=== PATIENT | female | born 1995 | race Caucasian/White ===

== ENCOUNTER 2019-05-30 17:28 | Emergency (ER) | payer OTHER ==
[~2019-05-30] VITALS: Ht 157.5 cm; Wt 75.0 kg
[2019-05-30 19:45] VITALS: BP 97/56
[2019-05-30] MEDS ORDERED: SULF1TAB24 PO (20:13)
[2019-05-30] MEDS ORDERED: ERYT1OIN6 OP (20:13)
--- NOTE | 2019-05-30 20:14 | PHYS DOC ---
Adult General Chief Complaint Chief Complaint: EYE PROBLEMS HPI HPI Patient is a 23 year old female who presents to the ED today complaining of her stay on the left upper eyelid that began 3 days ago, denies any fever or vision issues. She is also complaining of an area of redness/cellulitis on the left lower lip that she believes began around the same time. Denies any fever but states the infection has gone in her blood stream and wants to be worked up. (ANTONIO THURSTON APRN) Review of Systems Review of Systems Constitutional: Denies fever or chills [] Eyes: Reports stye to the left upper eyelid. Denies change in visual acuity, or eye pain [] HENT: Reports redness to the left lower lip. Denies nasal congestion or sore throat [] Musculoskeletal: Denies back pain or joint pain [] Integument: Denies rash or skin lesions [] Neurologic: Denies headache, focal weakness or sensory changes [] All other systems were reviewed and found to be within normal limits, except as documented in this note. (ANTONIO THURSTON APRN) Allergies Allergies Allergies Coded Allergies Type Severity Reaction Last Updated Verified No Known Drug Allergies 05/30/19 No (WILLIE THOMPSON MD) Physical Exam Physical Exam Constitutional: Well developed, well nourished, no acute distress, non-toxic appearance. [] Eyes: PERRLA, EOMI, conjunctiva normal, no discharge. Left upper eyelid with a tiny external stye with slight erythema to the eyelid. Skin: Warm, dry, left lower lip with a tiny area of cellulitis Back: No tenderness, no CVA tenderness. [] Extremities: No tenderness, no cyanosis, no clubbing, ROM intact, no edema. [] Neurologic: Alert and oriented X 3, normal motor function, normal sensory function, no focal deficits noted. [] Psychologic: Affect normal, judgement normal, mood normal. [] (ANTONIO THURSTON APRN) Current Patient Data Vital Signs Vital Signs Date Time Temp Pulse Resp B/P (MAP) Pulse Ox O2 Delivery O2 Flow Rate FiO2 05/30/19 19:45 98.4 87 18 97/56 (70) 98 Room Air 98.4 (WILLIE THOMPSON MD) EKG EKG [] (ANTONIO THURSTON APRN) Radiology/Procedures Radiology/Procedures [] (ANTONIO THURSTON APRN) Course & Med Decision Making Course & Med Decision Making Pertinent Labs and Imaging studies reviewed. (See chart for details) This is a 23-year-old female patient presenting to the ED today with a stye to the left upper eyelid, discharged on erythromycin. Also has cellulitis to the lower lip. Discharged on Bactrim. Tetanus up-to-date. Patient tried stating the infection has gone top her blood stream and she needs to be worked up. She has no fever and her HR is normal neither does she meet sepsis criteria. Discharged to home. (ANTONIO THURSTON APRN) Dragon Disclaimer Dragon Disclaimer This electronic medical record was generated, in whole or in part, using a voice recognition dictation system. (ANTONIO THURSTON APRN) Departure Departure Impression: Primary Impression: Cellulitis of skin of lip Additional Impression: Sty, external Disposition: HOME, SELF-CARE Condition: STABLE Referrals: LAURA MENDIETA MD (PCP) follow up in 1 week Patient Instructions: Cellulitis, [id number], Sty Additional Instructions: You were seen for a stye on the left upper eyelid and cellulitis to lip. Use the prescribed medications as ordered. Ensure you complete your oral antibiotics. Apply warm compresses to the left upper eyelid twice a day. Follow- up with your doctor in 1-2 weeks. Scripts Erythromycin Base (Erythromycin) 1 Gm Oint...g. 1 GM OP Q4HRS W/A, #1 MISC Apply 1/2 inch to the left eye every 4 hours while awake for 7 days Prov: ANTONIO THURSTON APRN 05/30/19 Sulfamethoxazole/Trimethoprim (BACTRIM DS TABLET) 1 Each Tablet 1 TAB PO BID for 10 Days, #20 TAB 0 Refills Prov: ANTONIO THURSTON APRN 05/30/19 Attending Signature I have participated in the care of this patient and I have reviewed and agree with all pertinent clinical information above including history, exam, and recommendations. (WILLIE THOMPSON MD) Problem Qualifiers Additional Impression: Sty, external Laterality: left Eyelid: upper Qualified Codes: H00.014 - Hordeolum externum left upper eyelid ANTONIO THURSTON APRN May 30, 2019 20:14 WILLIE THOMPSON MD May 31, 2019 05:07
[2019-05-30] MEDS ORDERED: ONDA4TAB7 PO (21:59)
== END 2019-05-30 20:15 | disposition home or self-care (01) ==
LOC: ER 17:28
DX: K13.0 Diseases of lips (principal); H00.014 Hordeolum externum left upper eyelid
CPT/HCPCS: 99283

== ENCOUNTER 2019-05-30 21:41 | Emergency (ER) | payer OTHER ==
[~2019-05-30] VITALS: Ht 157.5 cm; Wt 100.0 kg
[~2019-05-30 21:41] MED LIST: ERYT1OIN6 OP; SULF1TAB24 PO
[2019-05-30 21:42] VITALS: BP 119/58
[2019-05-30] MEDS ORDERED: ONDA4TAB7 PO (21:59)
--- NOTE | 2019-05-30 21:59 | PHYS DOC ---
Past Medical History Past Medical History: Asthma, Bipolar Additional Past Medical Histor: MMD, BPD Additional Past Surgical Histo: ONE OVARY Smoking Status: Never Smoker Alcohol Use: None Adult General Chief Complaint Chief Complaint: ANXIETY/PANIC ATTACK HPI HPI 23-year-old female recently seen in the emergency department for stye, had anxiety attack in the parking lot, she took 2 hits of marijuana. Patient states she has had some nausea and vomiting over the last couple days as well as generalized body aches. She states "I am concerned I have Sepsis." Nothing makes her symptoms worse, nothing makes her symptoms better. Review of Systems Review of Systems Constitutional: genearlized aches Respiratory: Denies cough or shortness of breath [] Cardiovascular: No additional information not addressed in HPI [] GI: Denies abdominal pain, + nausea, vomiting, no bloody stools or diarrhea [] : Denies dysuria or hematuria [] Musculoskeletal: Denies back pain or joint pain [] Neurologic: Denies headache, focal weakness or sensory changes [] All other systems were reviewed and found to be within normal limits, except as documented in this note. Physical Exam Physical Exam Constitutional: Well developed, well nourished, no acute distress, non-toxic appearance. [] Cardiovascular:Heart rate regular rhythm, no murmur [] Lungs & Thorax: Bilateral breath sounds clear to auscultation [] Abdomen: Bowel sounds normal, soft, no tenderness, no masses, no pulsatile masses. [] Skin: Warm, dry, no erythema, no rash. [] Extremities: No tenderness, no edema. [] Neurologic: Alert and oriented X 3, no focal deficits noted. [] Psychologic: Affect normal, judgement normal, mood normal. [] EKG EKG [] Radiology/Procedures Radiology/Procedures [] Course & Med Decision Making Course & Med Decision Making Pertinent Labs and Imaging studies reviewed. (See chart for details) []23-year-old female recently seen in the emergency department for stye, had anxiety attack in the parking lot, she took 2 hits of marijuana. Patient states she has had some nausea and vomiting over the last couple days as well as generalized body aches. She states "I am concerned I have Sepsis." Nothing makes her symptoms worse, nothing makes her symptoms better. Dragon Disclaimer Dragon Disclaimer This electronic medical record was generated, in whole or in part, using a voice recognition dictation system. Departure Departure Impression: Primary Impression: Sty, external Additional Impression: Vomiting Disposition: 01 HOME, SELF-CARE Condition: LEFT WITHOUT BEING SEEN Referrals: LAURA MENDIETA MD (PCP) Patient Instructions: Nausea and Vomiting, [id number] Additional Instructions: Encourage liquids as tolerated Zofran as needed for nausea Tylenol as needed for fever/body aches Scripts Ondansetron Hcl (ZOFRAN) 4 Mg Tablet 1 TAB PO PRN Q6-8HRS for nausea, #12 TAB Prov: WILLIE THOMPSON MD 05/30/19 Problem Qualifiers Primary Impression: Sty, external Laterality: left Eyelid: unspecified eyelid Qualified Codes: H00.016 - Hordeolum externum left eye, unspecified eyelid Additional Impression: Vomiting Vomiting type: unspecified Vomiting Intractability: unspecified Nausea presence: unspecified Qualified Codes: R11.10 - Vomiting, unspecified WILLIE THOMPSON MD May 30, 2019 21:59
== END 2019-05-30 22:03 | disposition home or self-care (01) ==
LOC: ER 21:41
DX: R11.2 Nausea with vomiting, unspecified (principal); H00.016 Hordeolum externum left eye, unspecified eyelid; F31.9 Bipolar disorder, unspecified; J45.909 Unspecified asthma, uncomplicated
CPT/HCPCS: 99283